=== PATIENT | male | born 1995 ===

== ENCOUNTER 2017-03-04 19:59 | Emergency (ER) | payer OTHER ==
[2017-03-04 20:04] VITALS: RESP 16
[2017-03-04] MEDS ORDERED: Aluminum Hydroxide/Magnesium Hydroxide Susp (30 mL) PO STA (21:05)
[2017-03-04] MEDS ORDERED: Aluminum Hydroxide/Magnesium Hydroxide Susp (30 mL) ONE (21:22)
--- NOTE | 2017-03-04 21:36 | C.PDOC ---
Time Seen by Provider: 03/04/17 20:55 Chief Complaint (Nursing): Chest Pain History Per: Patient Onset/Duration Of Symptoms: Hrs (since this morning) Current Symptoms Are (Timing): Still Present Severity: Moderate Quality: "Pain" Associated Symptoms: denies: Nausea, Dyspnea, Diaphoresis, Syncope Modifying Factors: Other Indicated Below Exacerbating Factors: Turning, Movement Recent travel outside of the [place]: No Additional History Per: Prior Records Past Medical History Reviewed: Historical Data, Nursing Documentation, Vital Signs Vital Signs: Last Vital Signs Temp 98.1 F 03/04/17 20:01 Pulse 101 H 03/04/17 20:01 Resp 16 03/04/17 20:01 BP 118/80 03/04/17 20:01 Pulse Ox 98 03/04/17 20:01 - Medical History PMH: No Chronic Diseases Surgical History: No Surg Hx Family History: States: No Known Family Hx - Social History Hx Tobacco Use: No Hx Alcohol Use: No Hx Substance Use: No - Immunization History Hx Tetanus Toxoid Vaccination: No Hx Influenza Vaccination: No Hx Pneumococcal Vaccination: No Review Of Systems Except As Marked, All Systems Reviewed And Found Negative. Constitutional: Negative for: Fever, Weakness Cardiovascular: Negative for: Palpitations, Light Headedness Respiratory: Negative for: Cough, Shortness of Breath, Hemoptysis Gastrointestinal: Positive for: Abdominal Pain (mild epigastric). Negative for : Nausea, Vomiting Musculoskeletal: Negative for: Leg Pain Skin: Negative for: Rash Neurological: Negative for: Weakness, Numbness, Seizures, Altered Mental Status Physical Exam - Physical Exam Appears: Non-toxic, No Acute Distress Skin: Normal Color, Warm, Dry, No Rash Head: Atraumatic, Normacephalic Eye(s): bilateral: Normal Inspection, PERRL, EOMI Neck: Normal ROM, Supple Chest: Symmetrical, No Deformity, Tenderness, No Ecchymosis, No Subcutaneous Emphysema Cardiovascular: Rhythm Regular Respiratory: Normal Breath Sounds, No Accessory Muscle Use Gastrointestinal/Abdominal: Soft, No Tenderness Back: No CVA Tenderness Extremity: Normal ROM, No Pedal Edema, No Calf Tenderness Neurological/Psych: Oriented x3, Normal Motor, Normal Sensation ED Course And Treatment ECG: Interpreted By Me, Viewed By Me ECG Rhythm: Sinus Rhythm, Nonspecific Changes ECG Interpretation: No Acute Changes Rate From EC O2 Sat by Pulse Oximetry: 98 Pulse Ox Interpretation: Normal - Radiology CXR: Interpreted by Me, Viewed By Me CXR Interpretation: Yes: No Acute Disease, Heart Size (wnl), Mediastinum (wnl) Progress - Interventions Interventions:: Observation - Medications Administered Oral: Antacid, H-2 teena - Data Reviewed Data Reviewed: Diagnostic imaging, EKG, Old records - Patient Status Patient status: Mostly improved - Continuity of Care Discussed patient case with:: Patient, ED Nurse - Patient Plan Patient Plan: Discharge, F/U with PCP Medical Decision Making Medical Decision Making: PERC rule negative Disposition Counseled Patient/Family Regarding: Studies Performed, Diagnosis, Need For Followup, Rx Given - Disposition Referrals: [facility] [Outside] Disposition: HOME/ ROUTINE Disposition Time: 21:37 Condition: IMPROVED Additional Instructions: Follow up in the clinic for further evaluation and treatment. Return to the ER if you develop shortness of breath, vomiting, worsening of symptoms or if you have any other concerns. Prescriptions: Acetaminophen [Tylenol Extra Strength] 2 tab PO Q6 PRN #30 tablet PRN Reason: Pain, Moderate (4-7) Famotidine [Pepcid] 20 mg PO BID #30 tab Instructions: Noncardiac Chest Pain (ED) - Clinical Impression Clinical Impression: Non-cardiac chest pain
[2017-03-04 21:55] VITALS: BP 108/83; PULSE 94; TEMP 98.5; O2SAT 99
--- NOTE | 2017-03-05 08:35 | RAD ---
HISTORY: Chest pain COMPARISON: No prior. TECHNIQUE: Chest PA and lateral FINDINGS: LUNGS: No active pulmonary disease. PLEURA: No significant pleural effusion identified. No pneumothorax apparent. CARDIOVASCULAR: Normal. OSSEOUS STRUCTURES: No significant abnormalities. VISUALIZED UPPER ABDOMEN: Normal. OTHER FINDINGS: None. IMPRESSION: No active disease.
== END 2017-03-04 21:55 | disposition home or self-care (01) ==
LOC: C.ER 19:59
DX: R07.89 Other chest pain (principal)
CPT/HCPCS: 71020; 96372; 99284; J1885

== ENCOUNTER 2017-03-06 14:09 | Emergency (ER) | payer OTHER ==
[2017-03-06 14:18] VITALS: RESP 18
[2017-03-06] MEDS ORDERED: Sodium Chloride 0.9% 1,000 ML IV ONE (14:33)
[2017-03-06] MEDS ORDERED: Alum-Mag Hydrox-Simethicone Susp (30 mL) PO STA (14:34)
[2017-03-06] MEDS ORDERED: Sodium Chloride 0.9% 1,000 ML ONE (14:58)
[2017-03-06] MEDS ORDERED: Aluminum Hydroxide/Magnesium Hydroxide Susp (30 mL) ONE (14:59)
[2017-03-06 15:03] LABS: BASO % 0.4 % (0.0-2.0); EOS # 0.1 K/uL (0.0-0.7); EOS % 0.6 % (0.0-4.0); HEMATOCRIT 44.4 % (35.0-51.0); LYMPH # 2.8 K/uL (1.0-4.3); LYMPH % 26.8 % (20.0-40.0); MEAN CELL VOLUME 72.6 fL (80.0-94.0); MEAN CORPUSCULAR HEMOGLOBIN 24.6 pg (27.0-31.0); MEAN CORPUSCULAR HGB CONC 33.8 g/dL (33.0-37.0); MEAN PLATELET VOLUME 8.3 fL (7.2-11.7); MONO # 0.5 K/uL (0.0-0.8); MONO % 5.3 % (0.0-10.0); RED CELL DISTRIBUTION WIDTH 14.1 % (11.5-14.5); WHITE BLOOD COUNT 10.4 K/uL (4.8-10.8)
[2017-03-06 15:10] LABS: CHLORIDE 100 mmol/L (98-107)
[2017-03-06 15:11] LABS: POTASSIUM 3.9 mmol/L (3.6-5.2); SODIUM 140 mmol/L (132-148)
[2017-03-06 15:13] LABS: BILIRUBIN,TOTAL 0.7 mg/dL (0.2-1.3); CARBON DIOXIDE 25 mmol/L (22-30); GFR AFRICAN-AMERICAN > 60
[2017-03-06 15:14] LABS: ALB/GLOB RATIO 1.6 (1.0-2.1); ALKALINE PHOSPHATASE 61 U/L (38-126); ALT/SGPT 18 U/L (21-72); AST/SGOT 19 U/L (17-59); TOTAL PROTEIN 8.2 g/dL (6.3-8.3)
[2017-03-06 15:15] LABS: BLOOD UREA NITROGEN 8 mg/dL (9-20); CALCIUM 9.3 mg/dl (8.6-10.4); GLUCOSE,RANDOM 90 mg/dL (75-110)
--- NOTE | 2017-03-06 15:47 | RAD ---
HISTORY: SOB COMPARISON: 03/04/2017. TECHNIQUE: Chest PA and lateral FINDINGS: LUNGS: No active pulmonary disease. PLEURA: No significant pleural effusion identified. No pneumothorax apparent. CARDIOVASCULAR: Normal. OSSEOUS STRUCTURES: No significant abnormalities. VISUALIZED UPPER ABDOMEN: Normal. OTHER FINDINGS: None. IMPRESSION: No active disease. No significant interval change compared to the prior examination(s). Concordant results with the preliminary interpretation rendered by the emergency department physician procedure.
--- NOTE | 2017-03-06 16:13 | C.PDOC ---
History Of Present Illness 21 y/o male presents to the ED with complains of epigastric discomfort and left upper chest discomfort x1 week. Pt was seen 2 days ago with negative workup, diagnosed with costochondritis and GERD. Pt noncompliant with pepcid and Maalox. Took Tylenol yesterday. Pt is anxious about an issue with friends that has been ongoing with friends for the past few weeks. He states he feels weak and tired and hasn't worked for 2 weeks. Denies fever, chills, SOB, vomiting or any other complaints. Time Seen by Provider: 03/06/17 14:23 Chief Complaint (Nursing): Chest Pain History Per: Patient History/Exam Limitations: no limitations Onset/Duration Of Symptoms: Days Current Symptoms Are (Timing): Still Present Severity: Moderate Quality: Other (discomfort) Modifying Factors: None Alleviating Factors: None Recent travel outside of the [place]: No Past Medical History Reviewed: Historical Data, Nursing Documentation, Vital Signs Vital Signs: Last Vital Signs Temp 98.2 F 03/06/17 14:14 Pulse 109 H 03/06/17 14:14 Resp 18 03/06/17 14:14 BP 121/71 03/06/17 14:14 Pulse Ox 100 03/06/17 16:13 Family History: States: Unknown Family Hx - Social History Hx Tobacco Use: No Hx Alcohol Use: No Hx Substance Use: No - Immunization History Hx Tetanus Toxoid Vaccination: No Hx Influenza Vaccination: No Hx Pneumococcal Vaccination: No Review Of Systems Except As Marked, All Systems Reviewed And Found Negative. Constitutional: Positive for: Weakness, Other (tired). Negative for: Fever, Chills Cardiovascular: Positive for: Chest Pain Respiratory: Negative for: Shortness of Breath Gastrointestinal: Positive for: Abdominal Pain. Negative for: Nausea, Vomiting , Diarrhea Physical Exam - Physical Exam Appears: Non-toxic, No Acute Distress, Other (thin, anxious) Skin: Warm, Dry, No Rash Head: Atraumatic, Normacephalic Nose: Normal Neck: Normal, Normal ROM, Supple Chest: Symmetrical, Tenderness (digitally reproducible pain to left upper chest) , Other (no rash) Cardiovascular: Rhythm Regular, No Murmur Respiratory: Normal Breath Sounds, No Rales, No Rhonchi, No Wheezing Gastrointestinal/Abdominal: Soft, Tenderness (vague epigastric), No Guarding, No Rebound Extremity: Bilateral: Atraumatic Neurological/Psych: Oriented x3, Normal Speech ED Course And Treatment - Laboratory Results Result Diagrams: 03/06/17 14:57 03/06/17 14:57 Lab Interpretation: Normal (esr and trop neg.) ECG: Interpreted By Me ECG Rhythm: Sinus Rhythm ECG Interpretation: Normal Rate From EC (BPM) O2 Sat by Pulse Oximetry: 100 (room air) Pulse Ox Interpretation: Normal - Radiology CXR: Interpreted by Me CXR Interpretation: Yes: No Acute Disease Progress Note: On reevaluation, pt feeling better, states he feels he can go back to work. Reevaluation Time: 16:12 Reassessment Condition: Improved Medical Decision Making Medical Decision Making: anxiety, depression, L chest costochondritis, GERD LOW susp of ACS neg ESR argues against pericarditis Disposition Doctor Will See Patient In The: Office Counseled Patient/Family Regarding: Studies Performed, Diagnosis - Disposition Referrals: [facility] [Outside] [facility] [Outside] Mann King MD [Staff Provider] - Disposition: HOME/ ROUTINE Disposition Time: 16:12 Condition: GOOD Additional Instructions: Costochondritis: Motrin 400-600 mg every 6 hours as needed Pepcid 20 mg @ night to prevent stomach irritation from the motrin Ice packs 1/2 hour per hour, nothing hot. No heavy lifting for 1 week. (this discomfort will last another 2-3 weeks) GERD: Pepcid 20 mg 9AM and 9PM (evening dose is more important!) Maalox 30 cc 5x/day for 3 days, then as needed (this coats the esophagus and relieves discomfort) Follow-up with your pmd or our Clinic for a referral to a [facility] Department Supervisor- Dr. Garcia Anxiety: Seek outpatient evaluation for your anxiety and insomnia issues through our [facility] (3 blocks away) Xanax 0.25 mg every 8 hours (only 1-2/day) for increased anxiety Regular exercise and minimal stimulants/caffeine. Prescriptions: ALPRAZolam [Xanax] 0.25 mg PO Q8H PRN #6 tab PRN Reason: Anxiety Instructions: Costochondritis (ED), Gastroesophageal Reflux Disease (ED), Anxiety (ED) - Clinical Impression Clinical Impression: Chest discomfort, Epigastric burning sensation - Scribe Statement The provider has reviewed the documentation as recorded by the Lali Bazan Provider Attestation: All medical record entries made by the Lali were at my direction and personally dictated by me. I have reviewed the chart and agree that the record accurately reflects my personal performance of the history, physical exam, medical decision making, and the department course for this patient. I have also personally directed, reviewed, and agree with the discharge instructions and disposition.
[2017-03-06 16:29] VITALS: BP 143/73; PULSE 94; TEMP 98.3
[2017-03-06 16:30] VITALS: O2SAT 100
--- NOTE | 2017-03-12 20:50 | CARD ---
APPROVED REPORT EKG Measurement Heart [id number] <Conclusion> Sinus rhythm with short NE Moderate voltage criteria for LVH, may be normal variant Borderline ECG
--- NOTE | 2017-03-15 17:49 | CARD ---
APPROVED REPORT EKG Measurement Heart [id number] <Conclusion> Sinus rhythm with short [place] Otherwise normal ECG
== END 2017-03-06 16:28 | disposition home or self-care (01) ==
LOC: C.ER 14:09
DX: R07.89 Other chest pain (principal); R10.13 Epigastric pain
CPT/HCPCS: 71020; 80053; 83880; 84484; 85025; 85651; 93005; 96361; 96374; 96375; 99284; J1885; J7040